=== PATIENT | male | born 1990 | race Caucasian/White ===

== ENCOUNTER → 2016-09-27 | Outpatient (CLI) | payer OTHER | LOC: LAB 02:32 | DX: Z02.83 Encounter for blood-alcohol and blood-drug test (principal) | CPT/HCPCS: 36415 ==

== ENCOUNTER 2021-01-20 22:18 | Emergency (ER) | payer OTHER ==
[~2021-01-20 22:18] MED LIST: IBUPROFEN400 MG PO; ZOFRAN4 MG PO
[2021-01-21 00:55] LABS: HEMOGLOBIN 15.6 gm/dl (14.0-17.5); RED BLOOD COUNT 4.9 M/UL (4.20-5.50); WHITE BLOOD COUNT 8.3 K/UL (4.5-11.0)
[2021-01-21 01:06] LABS: BUN/CREATININE RATIO 13 (0-10)
[2021-01-21] MEDS ORDERED: IBUPROFEN600 MG PO (02:11)
== END 2021-01-21 02:44 | disposition home or self-care (01) ==
LOC: ER1 22:18
PROVIDERS: Emergency Medicine
DX: R51.9 Headache, unspecified (principal); R53.83 Other fatigue; Z90.89 Acquired absence of other organs; F17.210 Nicotine dependence, cigarettes, uncomplicated; Z20.822 Contact with and (suspected) exposure to COVID-19
CPT/HCPCS: 80053; 84439; 84443; 85025; 99284; U0002